=== PATIENT | male | born 1950 | race Caucasian/White ===

== ENCOUNTER 2016-03-27 07:37 | Inpatient (IN) | payer MEDICARE, OTHER ==
[~2016-03-27] VITALS: Ht 165.1 cm; Wt 69.2 kg
[~2016-03-27 07:37] MED LIST: BENA40TA5 PO; CPR500T PO; DILT180C9 PO; GLIM1TAB PO; HCT25T PO; ISOS30TA41 PO; LSNP10T PO; METF500T4 PO; METR500T PO; ONDA4TAB8 PO; PANT40TA3 PO; ROSU20TA PO; TRM50T PO
[2016-03-27] MEDS ORDERED: PIOG30TA2 PO (07:58)
[2016-03-27] MEDS ORDERED: GLIM1TAB PO (07:58)
[2016-03-27] MEDS ORDERED: NF-LISIN40 PO (07:58)
[2016-03-27] MEDS ORDERED: DILT180C54 PO (07:58)
[2016-03-27] MEDS ORDERED: NTR.4SL SL (07:58)
[2016-03-27] MEDS ORDERED: SODIUM CHLORIDE 250 ML IV PRN (08:10)
[2016-03-27] MEDS ORDERED: SODIUM CHLORIDE FLUSH 3 ML SYR IV PRN (08:10)
[2016-03-27] MEDS ORDERED: ONDANSETRON 2 MG/ML (Z0FRAN) 2 ML VIAL IV ONE (08:10)
[2016-03-27] MEDS ORDERED: SODIUM CHLORIDE FLUSH 10 ML SYR IV PRN ×2 (08:10)
[2016-03-27 08:57] LABS: ALBUMIN 4.6 g/dL (3.4-5.0); ALKALINE PHOSPHATASE 91 U/L (38-126); AMYLASE* 113 U/L (25-115); ANION GAP 17.5 MEQ/L (3-15); BUN/CREATININE RATIO 24 (10-20); CALCULATED IONIZED CALCIUM 4.1 mg/dL (3.8-4.6); CREATINE KINASE 98 U/L (55-170); LIPASE* 125 U/L (23-300); TOTAL PROTEIN 8.1 g/dL (6.4-8.5)
[2016-03-27 09:02] LABS: MEAN CORPUSCULAR HEMOGLOBIN 29.1 PG (26.0-34.0); MEAN CORPUSCULAR HGB CONC 34.2 g/dL (31.0-37.0); MEAN CORPUSCULAR VOLUME 85 FL (80-100); MEAN PLATELET VOLUME 10.2 FL (6.0-9.5); PLATELET COUNT 251 10^3uL (150-450); WHITE BLOOD COUNT 22.47 10^3uL (4.0-11.0)
--- NOTE | 2016-03-27 09:10 | Diagnostic Imaging Report ---
Indication: Nausea and vomiting with diarrhea for one month, overall weakness. Discussion: Supine and upright views of the abdomen and chest were obtained, comparison with plain films and CT from 06/08/2015. No focal consolidation, pleural fluid, pneumothorax. Median sternotomy is stable. Stable normal heart size. Postoperative changes are again noted within the epigastric region and pelvis. Amorphous calcification within the left midabdomen, which is located within the mesentery on CT, is stable and likely benign. Normal bowel gas pattern. No evidence of obstruction, pneumatosis, pneumoperitoneum. Degenerative changes within the lumbar spine and bilateral hips are stable. Incidental note of left L5 pseudoarthrosis which can be associated with pain. Impression: 1. Unremarkable bowel gas pattern. Stable chronic findings as discussed above. Dictated by: Dictated on workstation # [id number]
[2016-03-27 09:30] LABS: BAND NEUTROPHILS % 6 % (0-6); EOSINOPHILS % 0 % (0-4); LYMPHOCYTES # 0.5 #; MONOCYTES # 0.9 #; MONOCYTES % 4 % (3-11); RBC MORPH NORMAL (NORMAL); SEGMENTED NEUTROPHILS % 88 % (51-67); TOTAL CELLS COUNTED 100
--- NOTE | 2016-03-27 10:40 | NUR ---
remains at bedside. cl
--- NOTE | 2016-03-27 11:02 | NUR ---
PT NOTIFIED THAT PREVIOUS SPUTUM SPECIMAN PRESENTED HAD TOO MANY EPITHELIAL CELLS. A 2ND SPUTUM SPECIMEN SET UP & PT INSTRUCTED IN ATTEMPTING TO GET LESS SPUTUM & MUCH OF THE THICK MUCUS POSSIBLE. CL
--- NOTE | 2016-03-27 11:22 | Diagnostic Imaging Report ---
PROCEDURE: CT abdomen and pelvis without contrast. TECHNIQUE: Multiple contiguous axial images were obtained through the abdomen and pelvis without the use of intravenous contrast. DATE: March 27, 2016. COMPARISON: KUB March 27, 2016. CT abdomen and pelvis June 08, 2015. INDICATION: 65-year-old male, vomiting, diarrhea. Left lower quadrant pain. FINDINGS: There are limitations for evaluation of the abdominal organ parenchyma and vasculature relating to lack of intravenous contrast. There are subjacent somewhat branching areas of ill-defined patchy groundglass attenuation and mild nodularity in the right middle lobe and right lower lobe. This is also seen on the comparison exam with a very similar appearance to the prior exam. Previously noted tree-in-bud nodularity in the left lower lobe appears to have resolved. The heart is not enlarged. There is no pericardial effusion. There is a small hiatal hernia. The liver is normal in size and contour. The gallbladder is unremarkable. There is no identified intrahepatic or extrahepatic bile duct dilation. The pancreatic parenchyma is unremarkable. There is an accessory splenule on axial image 19. The spleen is not enlarged. There is nonspecific mild thickening of the adrenal glands. Unremarkable appearance of the renal parenchyma. The urinary collecting systems are not distended. There is no identified renal or ureteral stone. The urinary bladder is unremarkable in appearance. The prostate gland is not seen with surgical clips in the pelvis likely relating to prior prostatectomy. There is diverticulosis without evidence of acute diverticulitis. There is a broad-based fat-containing intra-abdominal wall hernia. The intestinal tract is not distended. The appendix is well seen on axial image 51 and adjacent sequential images and is normal. There is no free intraperitoneal air. There is no drainable fluid collection. There is no free pelvic fluid. There is a fat-containing mass-like area in the left omentum with a thin peripheral wall which is unchanged since comparison exam. 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 There are atherosclerotic calcifications. There is no identified abnormally enlarged lymph node in the abdomen or pelvis which meets CT size criteria for adenopathy. There is chondrocalcinosis. There are severe degenerative changes of the bilateral hips. There is a sclerotic lesion in the right iliac bone on axial image 58, which measures 8 mm in size. This is unchanged since June 08, 2015. This is not specific. There are multilevel degenerative changes of the spine. There are median sternotomy wires. IMPRESSION: CT ABDOMEN AND PELVIS. 1. Tree-in-bud nodularity and patchy areas of groundglass attenuation in the right middle lobe which are present previously in May 2015 and do appear similar. This likely relates to an infectious bronchiolitis. 2. No identified acute abnormality within the abdomen or pelvis. Dictated by: Dictated on workstation # [id number]
[2016-03-27] MEDS ORDERED: BENZONATATE 100 MG (TESSALON) CAPSULE PO ONE (11:55)
--- NOTE | 2016-03-27 12:00 | NUR ---
PT UNABLE TO GIVE STOOL SPECIMEN. DR CAMERON NOTIFIED. CL
[2016-03-27 12:05] LABS: BILIRUBIN,URINE Negative (Negative); CLARITY,URINE Clear; COLOR,URINE Yellow; GLUCOSE, URINE (UA) Negative (Negative); LEUKOCYTE ESTERASE ,URINE Negative (Negative); UROBILINOGEN,URINE 0.2 mg/dL (0.2-1.0)
[2016-03-27 12:26] LABS: RBC,URINE 0-2 /HPF; URINE CENTRIFUGED VOLUME 12 mL
--- NOTE | 2016-03-27 12:48 | History and Physical (E) ---
History & Physical PCP: Phillip Guerrero Cardiology: Dr Mikki De Urologist: Dr. Collins GI- Dr. Olivares Ortho: Dr Sorenson and Dr. See CC: Nausea and vomiting-Abdominal pain HPI: Mr. Braga is a 65 year old male who comes to the ED for nausea, vomiting, diarrhea with abdominal pain that started at 4am on 03.27.16. He is reporting dizziness when he stands. He lives at home with two small children, one of which has recently been admitted here at the hospital for pneumonia. He also endorses a persistent cough that has been present for the last month. He's not been eating or drinking much due to nausea and vomiting. He denies any symptoms prior to this morning. He was recently treated for diverticulitis 2 weeks ago with Flagyl and Cipro. He presented to the ED and was evaluated. He was found to have elevated WBC's. He's tachycardiac. Respiratory viral panel positive for Coronavirus and Enterovirus. CT of abdomen and pelvis do not show any abdominal abnormalities. Admission was requested due to abdominal pain. Upon arrival to the floor, the patient has a very persistent cough which is his most notable complaint. He does appear ill. His is at bedside. Discussed findings and care plan. PMH: DM-2 (glimepiride, pioglitazone and metformin) CAD (prn ntg) HTN (diltiazem and lisinopril) Prostate Cancer GERD (pantoprazole) IBS Barretts Esophagus HLD (atorvastatin) Diverticulosis Arthritis PSH: CABG- Dr. Washburn EGD Colonoscopy Hernia surgery x 3 Davis Fundoplication-Dr Olivares Bilateral Total Knee surgery Prostate surgery Angiograms x 18 ALLERGIES: Sulfa E-mycin Ether Iodine Iv contrast Latex Morphine Please see list at end of report. HOME MEDICATIONS: Atorvastatin 40 MG PO HS Diltiazem 180 MG PO HS Glimepiride 1 MG PO DAILY Lisinopril 10 MG PO DAILY Metformin 1,000 MG PO BID WITH MEALS Pantoprazole 40 MG PO DAILY Pioglitazone 30 MG PO HS Nitroglycerin 0.4 MG SL UD PRN CHEST PAIN Ondansetron 4 MG PO Q8H PRN NAUSEA/VOMITING Please see list at end of report. FH: Parents--Mother from cardiac and colon cancer. Father had cardiac issues. Siblings--Brother with DM and CAD. Children--Healthy. SH: , lives at home with , has 1 daughter, 2 grandchildren which they help care for at their home, no smoking or alcohol use, retired from [employer], disabled. ROS: CONSTITUTION: Denies weight loss or gain. Denies fever or chills. HEENT: No change in vision or hearing. No sores in mouth, sore throat. CV: No chest pain, palpitations. H/O CAD PULM: Endorses cough, shortness of breath, difficulty breathing. GI: Endorses upset stomach, nausea, vomiting, and diarrhea. No blood in stool. : No dysuria. No blood in urine. MS: No new muscle or joint aches and pains. NEURO: No numbness or tingling. No weakness. INTEG: No rashes, lesions, or sores. ENDO: No heat or cold intolerance. No polydipsia or polyuria. HEME/LYMPH: No easy bruising or bleeding. No swollen glands. PSYCH: No change in mood or behavior. OBJECTIVE: Vitals: Vital Signs Date Time Temp Pulse Resp B/P Pulse Ox O2 Delivery O2 Flow Rate FiO2 03/27/16 07:38 98.8 106 16 177/94 97 Room Air GEN: Awake and alert. No distress. Pale. HEENT: EOMI, PERRL, dry oral mucosa. CV: RRR LUNGS: Coarse with wheezes bilaterally. Cough. ABD: Bowel sounds present. Soft. ND. EXTR: No edema. INTEG: No rash. Pale. NEURO: No focal motor neuro deficit. LABS: CBC BMP Last 24 Hrs 03/27/16 08:27 Laboratory Results Past 24 Hrs 03/27/16 08:27: Absolute Band Neutrophils 1.3, Activated Partial Thromboplast Time 28.6, Alanine Aminotransferase (ALT/SGPT) 41, Albumin 4.6, Albumin/Globulin Ratio 1.314, Alkaline Phosphatase 91, Amylase Level 113, Anion Gap 17.5, Aspartate Amino Transf (AST/SGOT) 29, BUN/Creatinine Ratio 24, Band Neutrophils % 6, Basophils # (Auto) , Basophils # (Manual) 0.0, Basophils % (Manual) 0, Basophils (%) (Auto) , Blood Morphology Comment Normal, Blood Urea Nitrogen 27, C-Reactive Protein 1.00, Calcium Level 10.0, Calcium/Ionized Calcium Ratio 4.1, Calculated Osmolality 280, Carbon Dioxide Level 26, Chloride Level 102, Creatine Kinase MB 0.6, Creatinine 1.11, Differential Total Cells Counted 100, Eosinophils # 0.0, Eosinophils # (Auto) , Eosinophils % (Manual) 0, Eosinophils (%) (Auto) , Estimat Glomerular Filtration Rate 80.4, Estimated GFR (Non- 66.5, Glucose Level 168, Hematocrit 40.60, Hemoglobin 13.9, Lactic Acid Level 2.3, Lipase 125, Lymphocytes # 0.5, Lymphocytes # (Auto) , Lymphocytes % (Manual) 2, Lymphocytes (%) (Auto) , Mean Corpuscular Hemoglobin 29.1, Mean Corpuscular Hemoglobin Concent 34.2, Mean Corpuscular Volume 85, Mean Platelet Volume 10.2, Monocytes # 0.9, Monocytes # (Auto) , Monocytes % ( Manual) 4, Monocytes (%) (Auto) , Neutrophils # 19.8, Neutrophils # (Auto) , Neutrophils (%) (Auto) , Platelet Count 251, Potassium Level 4.6, Prothromb Time International Ratio 1.1, Prothrombin Time 11.8, Red Blood Count 4.77, Red Cell Distribution Width 14.1, Segmented Neutrophils % 88, Sodium Level 140, Total Bilirubin 0.8, Total Creatine Kinase 98, Total Protein 8.1, Troponin I < 0.012, White Blood Count 22.47 03/27/16 08:35: Adenovirus (PCR) Negative, Bordetella parapertussis DNA (PCR) Negative, Chlamydophila pneumoniae (PCR) Negative, Coronavirus Type 229E (PCR) Negative, Coronavirus Type HKU1 (PCR) Negative, Coronavirus Type NL63 (PCR) Negative, Coronavirus Type OC43 (PCR) Positive, Enterovirus/Rhinovirus (PCR) Positive, Human Metapneumovirus (PCR) Negative, Influenza Type A (H1) (PCR) Negative, Influenza Virus Type B (PCR) Negative, Mycoplasma pneumoniae (PCR) Negative, Parainfluenza Type 1 (PCR) Negative, Parainfluenza Type 2 (PCR) Negative, Parainfluenza Type 3 (PCR) Negative, Parainfluenza Type 4 (PCR) Negative, Respiratory Syncytial Virus (PCR) Negative 03/27/16 12:00: Urine Bacteria None seen, Urine Bilirubin Negative, Urine Clarity Clear, Urine Collection Type Random voided, Urine Color Yellow, Urine Glucose (UA) Negative, Urine Ketones Negative, Urine Leukocyte Esterase Negative, Urine Nitrite Negative, Urine Protein 2+, Urine RBC 0-2, Urine RBC (Auto) Negative, Urine Specific [place] 1.015, Urine Squamous Epithelial Cells 0-2, Urine Urobilinogen 0.2, Urine WBC None seen, Urine pH 6.0, Volume Urine Centrifuged 12 ml [id number] Abdominal film Impression: 1. Unremarkable bowel gas pattern. Stable chronic findings as discussed above. 03.27.16 CT abd/pelvis IMPRESSION: CT ABDOMEN AND PELVIS. 1. Diverticulosis with mild inflammatory stranding adjacent to the proximal sigmoid colon compatible with acute diverticulitis. No evidence of perforation or abscess. 2. Scattered tree-in-bud nodular opacities within the left lower lobe, right lower lobe, and right middle lobe most likely relating to an infectious bronchiolitis although of uncertain exact acuity. This is new since comparison CT chest of August 23, 2013. ASSESSMENT/PLAN: Sepsis Met with fever, tachycardia and leukocytosis. Secondary to diverticulitis. Treatment below. Acute diverticulitis Imaging noted above. Patient could be improving, as his main complaint at this time is respiratory. Will however treat as failed outpatient tx. Monitor closely. NPO, ciprofloxacin, metronidazole and IVF's. Will treat pain with hydromorphone prn. Monitor for improvement. URI Due to doe and entero viruses. Not requiring oxygen but will monitor closely. Will treat bothersome cough with benzonatate. DM-2 Holding home regimen of glimepiride, pioglitazone and metformin. Providing SSI and monitoring accu cheks. CAD Currently no symptoms. On prn ntg at home. HTN Will continue home diltiazem and lisinopril despite sepsis criteria due to elevated BP. Watch how patient tolerating orals, may need to convert to IV. Prostate Cancer Stable. GERD/Barretts Esophagus On pantoprazole at home, will change to IV while here. Creatinine normal. DLD Holding home atorvastatin until tolerating diet. FEN NS at 100/hr x 1 liter. Electrolytes normal. NPO for now. Code status Full code. DVT proph SCD's Dispo Inpatient for above issues. Monitor patient closely. Expect 3-5 day stay. Allergies/Home Medications Allergies: Coded Allergies: Sulfa (Sulfonamide Antibiotics) (Verified Allergy, Unknown, 03/27/16) erythromycin base (Verified Allergy, Unknown, 03/27/16) ether (Verified Allergy, Unknown, 03/27/16) iodine (Verified Allergy, Unknown, 03/27/16) latex (Verified Allergy, Unknown, 03/27/16) morphine (Verified Allergy, Unknown, 03/27/16) Uncoded Allergies: iv contrast (Allergy, Unknown, 03/27/16) Reported Home Medications Scheduled Atorvastatin (Lipitor) 40 MG PO HS (Reported) Diltiazem HCl (Cartia XT) 180 MG PO HS (Reported) Glimepiride (Glimepiride) 1 MG PO DAILY (Reported) Lisinopril (Lisinopril) 10 MG PO DAILY (Reported) Metformin HCl (Metformin HCl) 1,000 MG PO BID WITH MEALS (Reported) Pantoprazole Sodium (Pantoprazole Sodium) 40 MG PO DAILY (Reported) Pioglitazone HCl (Actos) 30 MG PO HS (Reported) Scheduled PRN Nitroglycerin (Nitroquick) 0.4 MG SL UD PRN PRN CHEST PAIN (Reported) Ondansetron (Zofran ODT) 4 MG PO Q8H PRN PRN NAUSEA/VOMITING (Reported) Discontinued Medications Ciprofloxacin HCl (Cipro) 500 MG PO BID Discontinued Reason: Course completed Lisinopril (Lisinopril) 40 MG PO HS (Reported) Discontinued Reason: Update list Metformin HCl (Metformin HCl) 500 MG PO BID (Reported) Discontinued Reason: Update list Metronidazole (Flagyl) 500 MG PO QID Discontinued Reason: Course completed Ondansetron (Zofran ODT) 4 MG PO Q4H PRN PRN NAUSEA/VOMITING Discontinued Reason: Update list Tramadol HCl (Tramadol HCl) 1-2 TAB PO Q6H PRN PRN PAIN Discontinued Reason: Unknown Copies to: End of Report . Stephanie Montgomery APRN Mar 27, 2016 12:48 LYNN MERRILL MD Mar 27, 2016 19:14
--- NOTE | 2016-03-27 13:05 | NUR ---
Patient arrives to room 305 via ED cart. Alert and oriented X3. Denies pain despite persistent cough. Denies dizziness when ambulating from chair to bed. See admission for full assessment.
[2016-03-27] MEDS ORDERED: ONDANSETRON 2 MG/ML (Z0FRAN) 2 ML VIAL IV PRN (13:55)
[2016-03-27] MEDS ORDERED: PANTOPRAZOLE IV 40 MG in SODIUM CHLORIDE FLUSH 10 ML IV SCH (14:00)
[2016-03-27] MEDS ORDERED: NITROGLYCERIN SUBLINGUAL 0.4 MG (NITROQUICK) TABLET SL PRN (14:00)
[2016-03-27] MEDS ORDERED: NS FLUSH 10 ML PRN IV (14:05)
[2016-03-27] MEDS ORDERED: NS FLUSH 3 ML PRN IV (14:05)
[2016-03-27] MEDS ORDERED: METF1000 PO (14:21)
[2016-03-27 14:26] VITALS: BP 138/70
[2016-03-27 14:27] VITALS: BP 138/70
[2016-03-27 16:28] VITALS: BP 150/74
[2016-03-27] MEDS: BENZONATATE 100 MG (TESSALON) CAPSULE PO PRN (16:35)
--- NOTE | 2016-03-27 16:35 | NUR ---
Dr. Hernández notified that patient has persistent cough that is inducing vomiting. Vomit is yellow and foul smelling. PRN Tessalon lupe order received and administered at this time. Will continue to monitor.
[2016-03-27] MEDS ORDERED: ONDA4TAB8 PO (16:50)
[2016-03-27] MEDS ORDERED: ATOR40TA2 PO (16:50)
--- NOTE | 2016-03-27 16:51 | NUR ---
MED REC COMPLETE--current med list obtained from external med history and retail pharmacy ([facility]
--- NOTE | 2016-03-27 17:03 | NUR ---
Patient expels 200ml of vomit at this time. PRN Zofran provided. Currently running a fever of 101.2. PRN Tylenol provided. IV leaking in right hand. Discontinued with catheter intact. 22g IV initiated on first attempt by Gayle Quick RN after unsuccessful attempt by this nurse. Will continue to monitor.
[2016-03-27] MEDS: INSULIN LISPRO 1 UNIT/0.01 ML (HUMALOG) DOSE SC SCH ×2 (17:10→20:31)
--- NOTE | 2016-03-27 18:28 | NUR ---
Dr. Hernández here to see patient. Temp currently 98.9. Continues to report cough is persistent and "awful". Will continue to monitor.
[2016-03-27] MEDS ORDERED: HYDROmorphone 1 MG/ML (DILAUDID) SYRINGE IV PRN (18:55)
[2016-03-27] MEDS: ACETAMINOPHEN 325 MG TAB (TYLENOL) PO PRN (19:03)
[2016-03-27] MEDS ORDERED: CIPROFLOXACIN 400 MG/200 ML 200 ML IV ONE (20:33)
[2016-03-27] MEDS: DILTIAZEM CD 180 MG (CARDIZEM CD) CAP PO SCH (20:38)
[2016-03-27] MEDS ORDERED: CIPROFLOXACIN IV SCH (21:00)
[2016-03-27] MEDS ORDERED: D5W IV SCH (21:00)
[2016-03-28 00:44] VITALS: BP 112/62
[2016-03-28] MEDS: BENZONATATE 100 MG (TESSALON) CAPSULE PO PRN ×3 (01:02→20:06)
[2016-03-28 05:52] LABS: MEAN CORPUSCULAR HEMOGLOBIN 30.1 PG (26.0-34.0); MEAN CORPUSCULAR HGB CONC 34.8 g/dL (31.0-37.0); MEAN CORPUSCULAR VOLUME 87 FL (80-100); PLATELET COUNT 224 10^3uL (150-450); WHITE BLOOD COUNT 26.14 10^3uL (4.0-11.0)
[2016-03-28 06:10] LABS: BAND NEUTROPHILS % 4 % (0-6); MONOCYTES # 1.6 #; MONOCYTES % 6 % (3-11)
[2016-03-28 06:11] LABS: EOSINOPHILS % 0 % (0-4); RBC MORPH NORMAL (NORMAL); SEGMENTED NEUTROPHILS % 86 % (51-67); TOTAL CELLS COUNTED 100
[2016-03-28 06:31] LABS: ALBUMIN 3.4 g/dL (3.4-5.0); ANION GAP 13.1 MEQ/L (3-15); CALCULATED IONIZED CALCIUM 4.2 mg/dL (3.8-4.6); TOTAL PROTEIN 6.4 g/dL (6.4-8.5)
--- NOTE | 2016-03-28 06:43 | NUR ---
Patient rests in bed throughout needs. Reports cough during night, states that he is starting to have some pain in his shoulder from coughing, but "it's not too bad yet." Patient has been concerned about home medications that he hasn't taken, reassured that his physician would be looking at his medications today. IV running without difficulties. No needs at this time.
[2016-03-28] MEDS ORDERED: PANTOPRAZOLE IV 40 MG in SODIUM CHLORIDE FLUSH 10 ML IV SCH (07:00)
[2016-03-28] MEDS: INSULIN LISPRO 1 UNIT/0.01 ML (HUMALOG) DOSE SC SCH ×4 (07:30→21:00)
[2016-03-28] MEDS: ACETAMINOPHEN 325 MG TAB (TYLENOL) PO PRN (07:53)
[2016-03-28 08:00] VITALS: BP 115/70
[2016-03-28] MEDS: NS FLUSH 3 ML DAILY IV SCH (09:00)
[2016-03-28] MEDS ORDERED: CIPROFLOXACIN 400 MG/200 ML 200 ML IV SCH (09:00)
--- NOTE | 2016-03-28 09:00 | NUR ---
Asking for breakfast - informed is NPO for now. Takes meds po with sips of water. Loose, harsh cough at times. Took Tylenol for chest pain when coughing. Cheerful and cooperative.
[2016-03-28] MEDS ORDERED: PROMETHAZINE 25 MG/ML (PHENERGAN) 1 ML VIAL IM PRN (10:30)
[2016-03-28] MEDS ORDERED: PROMETHAZINE HCL INJ 12.5 MG in SODIUM CHLORIDE 25 ML IV PRN (10:55)
--- NOTE | 2016-03-28 11:00 | NUR ---
Walks to shower with mask on. Incontinent of stool when coughing. No nausea when taking diet Sprite.
--- NOTE | 2016-03-28 11:03 | Progress Note (E) ---
Progress Note SUBJECTIVE No issues reported overnight. Has had cough and resultant shoulder pain but is tolerating it. WBC remains elevated at 26.14 with 86% N and 4% B. Chemistry stable. Blood culture negative. Sputum pending. Last temp elevation was 101.2 at 16:30. Was placed on cipro and metronidazole for diverticulitis but CT from this admission shows no active inflammatory changes and he had just completed treatment for diverticulitis in outpatient setting. Permitting CLD today and advancing as tolerated. OBJECTIVE Vital Signs Date Time Temp Pulse Resp B/P Pulse Ox O2 Delivery O2 Flow Rate FiO2 03/28/16 08:00 98.7 70 20 115/70 94 Room air I & O 03/27/16 03/28/16 Cumulative From/Thru 19:00 07:00 03/27/16 07:38 - 03/28/16 06:06 Intake Total 0 ml 250 ml 250 ml Output Total 0 ml 1325 ml 1325 ml Balance 0 ml -1075 ml -1075 ml GEN: Awake, alert, interactive. NAD at present. HEENT: EOMI, clear sclerae, mildly dry oral mucosa. CV: Regular without murmur. PULM: Expiratory wheeze in right base with cough exacerbated by deep breathing. Otherwise CTA. ABD: Soft, non-tender, hyperactive bowel sounds. EXTR: No C/C/E. Normal peripheral pulses. INTEG: No rash. NEURO: No focal motor neuro deficit. Lab-Past 14 Days, 35 Results 03/27/16 08:27: Absolute Band Neutrophils 1.3, Activated Partial Thromboplast Time 28.6, Alanine Aminotransferase (ALT/SGPT) 41, Albumin 4.6, Albumin/Globulin Ratio 1.314, Alkaline Phosphatase 91, Amylase Level 113, Anion Gap 17.5H, Aspartate Amino Transf (AST/SGOT) 29, BUN/Creatinine Ratio 24H, Band Neutrophils % 6, Basophils # (Auto) , Basophils # (Manual) 0.0, Basophils % (Manual) 0, Basophils (%) (Auto) , Blood Morphology Comment Normal, Blood Urea Nitrogen 27H , C-Reactive Protein 1.00H, Calcium Level 10.0, Calcium/Ionized Calcium Ratio 4.1, Calculated Osmolality 280, Carbon Dioxide Level 26, Chloride Level 102, Creatine Kinase MB 0.6, Creatinine 1.11, Differential Total Cells Counted 100, Eosinophils # 0.0, Eosinophils # (Auto) , Eosinophils % (Manual) 0, Eosinophils (%) (Auto) , Estimat Glomerular Filtration Rate 80.4, Estimated GFR (Non- 66.5, Glucose Level 168H, Hematocrit 40.60, Hemoglobin 13.9, Lactic Acid Level 2.3H, Lipase 125, Lymphocytes # 0.5, Lymphocytes # (Auto) , Lymphocytes % (Manual) 2L, Lymphocytes (%) (Auto) , Mean Corpuscular Hemoglobin 29.1, Mean Corpuscular Hemoglobin Concent 34.2, Mean Corpuscular Volume 85, Mean Platelet Volume 10.2H, Monocytes # 0.9, Monocytes # (Auto) , Monocytes % ( Manual) 4, Monocytes (%) (Auto) , Neutrophils # 19.8, Neutrophils # (Auto) , Neutrophils (%) (Auto) , Platelet Count 251, Potassium Level 4.6, Prothromb Time International Ratio 1.1, Prothrombin Time 11.8, Red Blood Count 4.77, Red Cell Distribution Width 14.1, Segmented Neutrophils % 88H, Sodium Level 140, Total Bilirubin 0.8, Total Creatine Kinase 98, Total Protein 8.1, Troponin I < 0.012, White Blood Count 22.47H 03/27/16 08:35: Adenovirus (PCR) Negative, Bordetella parapertussis DNA (PCR) Negative, Chlamydophila pneumoniae (PCR) Negative, Coronavirus Type 229E (PCR) Negative, Coronavirus Type HKU1 (PCR) Negative, Coronavirus Type NL63 (PCR) Negative, Coronavirus Type OC43 (PCR) Positive*A, Enterovirus/Rhinovirus (PCR) Positive*A , Human Metapneumovirus (PCR) Negative, Influenza Type A (H1) (PCR) Negative, Influenza Virus Type B (PCR) Negative, Mycoplasma pneumoniae (PCR) Negative, Parainfluenza Type 1 (PCR) Negative, Parainfluenza Type 2 (PCR) Negative, Parainfluenza Type 3 (PCR) Negative, Parainfluenza Type 4 (PCR) Negative, Respiratory Syncytial Virus (PCR) Negative 03/27/16 12:00: Urine Bacteria None seen, Urine Bilirubin Negative, Urine Clarity Clear, Urine Collection Type Random voided, Urine Color Yellow, Urine Glucose (UA) Negative, Urine Ketones Negative, Urine Leukocyte Esterase Negative, Urine Nitrite Negative, Urine Protein 2+H, Urine RBC 0-2, Urine RBC (Auto) Negative, Urine Specific [place] 1.015, Urine Squamous Epithelial Cells 0-2, Urine Urobilinogen 0.2, Urine WBC None seen, Urine pH 6.0, Volume Urine Centrifuged 12 ml 03/28/16 05:32: Absolute Band Neutrophils 1.0, Alanine Aminotransferase (ALT/SGPT) 39, Albumin 3.4#, Albumin/Globulin Ratio 1.133, Alkaline Phosphatase 62, Anion Gap 13.1, Aspartate Amino Transf (AST/SGOT) 34, BUN/Creatinine Ratio 17, Band Neutrophils % 4, Basophils # (Auto) , Basophils # (Manual) 0.0, Basophils % (Manual) 0, Basophils (%) (Auto) , Blood Morphology Comment Normal, Blood Urea Nitrogen 19H , Calcium Level 8.9, Calcium/Ionized Calcium Ratio 4.2, Calculated Osmolality 272L, Carbon Dioxide Level 27, Chloride Level 104, Creatinine 1.14, Differential Total Cells Counted 100, Eosinophils # 0.0, Eosinophils # (Auto) , Eosinophils % (Manual) 0, Eosinophils (%) (Auto) , Estimat Glomerular Filtration Rate 78.0, Estimated GFR (Non- 64.5, Glucose Level 130#H, Hematocrit 33.90L, Hemoglobin 11.8L, Lymphocytes # 1.0, Lymphocytes # ( Auto) , Lymphocytes % (Manual) 4L, Lymphocytes (%) (Auto) , Mean Corpuscular Hemoglobin 30.1, Mean Corpuscular Hemoglobin Concent 34.8, Mean Corpuscular Volume 87, Mean Platelet Volume 10.0H, Monocytes # 1.6, Monocytes # (Auto) , Monocytes % (Manual) 6, Monocytes (%) (Auto) , Neutrophils # 22.5, Neutrophils # (Auto) , Neutrophils (%) (Auto) , Platelet Count 224, Potassium Level 4.9, Red Blood Count 3.92L, Red Cell Distribution Width 14.3, Segmented Neutrophils % 86H, Sodium Level 138, Total Bilirubin 1.1H, Total Protein 6.4, White Blood Count 26.14H MICRO 03/27 Blood culture Negative to date 03/27 Resp PCR Panel POSITIVE for Coronavirus (OC43) and Enter/Rhinovirus. IMAGING 03/27/16 CT ABDOMEN/PELVIS WO PROCEDURE: CT abdomen and pelvis without contrast. TECHNIQUE: Multiple contiguous axial images were obtained through the abdomen and pelvis without the use of intravenous contrast. DATE: March 27, 2016. COMPARISON: KUB March 27, 2016. CT abdomen and pelvis June 08, 2015. INDICATION: 65-year-old male, vomiting, diarrhea. Left lower quadrant pain. FINDINGS: There are limitations for evaluation of the abdominal organ parenchyma and vasculature relating to lack of intravenous contrast. There are subjacent somewhat branching areas of ill-defined patchy groundglass attenuation and mild nodularity in the right middle lobe and right lower lobe. This is also seen on the comparison exam with a very similar appearance to the prior exam. Previously noted tree-in-bud nodularity in the left lower lobe appears to have resolved. The heart is not enlarged. There is no pericardial effusion. There is a small hiatal hernia. The liver is normal in size and contour. The gallbladder is unremarkable. There is no identified intrahepatic or extrahepatic bile duct dilation. The pancreatic parenchyma is unremarkable. There is an accessory splenule on axial image 19. The spleen is not enlarged. There is nonspecific mild thickening of the adrenal glands. Unremarkable appearance of the renal parenchyma. The urinary collecting systems are not distended. There is no identified renal or ureteral stone. The urinary bladder is unremarkable in appearance. The prostate gland is not seen with surgical clips in the pelvis likely relating to prior prostatectomy. There is diverticulosis without evidence of acute diverticulitis. There is a broad-based fat-containing intra-abdominal wall hernia. The intestinal tract is not distended. The appendix is well seen on axial image 51 and adjacent sequential images and is normal. There is no free intraperitoneal air. There is no drainable fluid collection. There is no free pelvic fluid. There is a fat- containing mass-like area in the left omentum with a thin peripheral wall which is unchanged since comparison exam. 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 There are atherosclerotic calcifications. There is no identified abnormally enlarged lymph node in the abdomen or pelvis which meets CT size criteria for adenopathy. There is chondrocalcinosis. There are severe degenerative changes of the bilateral hips. There is a sclerotic lesion in the right iliac bone on axial image 58, which measures 8 mm in size. This is unchanged since June 08, 2015. This is not specific. There are multilevel degenerative changes of the spine. There are median sternotomy wires. IMPRESSION: CT ABDOMEN AND PELVIS. 1. Tree-in-bud nodularity and patchy areas of groundglass attenuation in the right middle lobe which are present previously in May 2015 and do appear similar. This likely relates to an infectious bronchiolitis. 2. No identified acute abnormality within the abdomen or pelvis. 03/27/16 ACUTE ABD SERIES Indication: Nausea and vomiting with diarrhea for one month, overall weakness. Discussion: Supine and upright views of the abdomen and chest were obtained, comparison with plain films and CT from 06/08/2015. No focal consolidation, pleural fluid, pneumothorax. Median sternotomy is stable. Stable normal heart size. Postoperative changes are again noted within the epigastric region and pelvis. Amorphous calcification within the left midabdomen , which is located within the mesentery on CT, is stable and likely benign. Normal bowel gas pattern. No evidence of obstruction, pneumatosis, pneumoperitoneum. Degenerative changes within the lumbar spine and bilateral hips are stable. Incidental note of left L5 pseudoarthrosis which can be associated with pain. Impression: 1. Unremarkable bowel gas pattern. Stable chronic findings as discussed above. ASSESSMENT Paul Braga is a 65 year old male admitted from ED 03/27 with SIRS/Sepsis initially attributed to diverticulitis but CT showed no significant inflammatory change in the abdomen and CRP was only mildly elevated at 1.00. He did, however, have leukocytosis and fever and he was positive for coronavirus and entero/rhinovirus on respiratory PCR swab. PLAN * SIRS/Sepsis: Attributed to diverticulitis initially but CT abdomen reassuring. Could be due to URI (coronavirus, entero/rhinovirus) and he may also have gastroenteritis. * Diverticulitis: Resolved on the basis of CT findings. Stopped cipro and metronidazole 03/28. * URI due to Coronavirus and Entero/rhinovirus: Supportive care. * Gastroenteritis: Clinical diagnosis, on the basis of diarrhea and nausea/ vomiting at home. Supportive care. Advance diet as tolerated. * Fever: Acetaminophen * Cough: Benzonatate. * Nausea/Vomiting: Resolving. Ondansetron, promethazine. * Abdominal Pain: Hydromorphone. * F/E/N: CLD. Advance as tolerated. Stop IVF 03/28. Peripheral IV. * Prophylaxis: Enoxaparin * Code Status: Full * Dispo: Inpatient. Possible D/C 03/29 if labs stable and fever resolving. CHRONIC ISSUES * HDL: Atorvastatin * Diabetes Mellitus Type II: Hold metformin, pioglitazone, and glimepiride while NPO. Sliding scale. * GERD: Pantoprazole * HTN: Diltiazem, lisinopril. * CAD: Not on aspirin at home. Observe. YOHANNES MATTHEWS MD Mar 28, 2016 10:50
[2016-03-28] MEDS: lisINopril 10 MG (PRINIVIL) TABLET PO SCH (11:12)
[2016-03-28] MEDS ORDERED: ASPI-586 PO (11:12)
[2016-03-28] MEDS: ENOXAPARIN 40 MG/0.4 ML (LOVENOX) SYR SC SCH (11:12)
[2016-03-28] MEDS ORDERED: ALBUTEROL/IPRATROPIUM 3MG-0.5MG/3ML (DUONEB) NEB VIAL INH PRN (11:15)
[2016-03-28] MEDS ORDERED: ASPIRIN 81 MG CHEW (CHILDREN'S ASA) PO SCH (11:15)
[2016-03-28] MEDS ORDERED: ASPI325T4 PO (11:56)
[2016-03-28 15:54] VITALS: BP 132/70
--- NOTE | 2016-03-28 15:55 | NUR ---
Pt is on room air SPO2 94%, appears to be comfortable at this time.
--- NOTE | 2016-03-28 18:20 | NUR ---
Eating soft supper. Has harsh cough occasionally. Up ad denisa in room. Alert and oriented. Skin w/d. Cooperative and pleasant. Incontinent of stool x 2 this shift.
[2016-03-28] MEDS: ATORVASTATIN 40 MG (LIPITOR) TABLET PO SCH (20:06)
[2016-03-28] MEDS: DILTIAZEM CD 180 MG (CARDIZEM CD) CAP PO SCH (20:06)
[2016-03-29] VITALS: BP 138/80
[2016-03-29] MEDS: ACETAMINOPHEN 325 MG TAB (TYLENOL) PO PRN ×3 (00:37→23:30)
[2016-03-29] MEDS: PANTOPRAZOLE 40 MG (PROTONIX) TAB PO SCH (06:24)
[2016-03-29] MEDS: BENZONATATE 100 MG (TESSALON) CAPSULE PO PRN ×3 (06:25→23:29)
[2016-03-29 06:31] LABS: BASOPHILS % (AUTO) 0 % (0-2); EOSINOPHILS # (AUTO) 0.1 10^3uL; EOSINOPHILS % (AUTO) 1 % (0-4); LYMPHOCYTES # (AUTO) 1.4 X10^3; MEAN CORPUSCULAR HEMOGLOBIN 29.7 PG (26.0-34.0); MEAN CORPUSCULAR HGB CONC 34.6 g/dL (31.0-37.0); MEAN CORPUSCULAR VOLUME 86 FL (80-100); MEAN PLATELET VOLUME 10.8 FL (6.0-9.5); MONOCYTES % (AUTO) 7 % (3-11); NEUTROPHILS # (AUTO) 11.7 X10^3; NEUTROPHILS % (AUTO) 82 % (51-67); PLATELET COUNT 223 10^3uL (150-450)
--- NOTE | 2016-03-29 06:41 | NUR ---
Patient resting in bed throughout night without needs. Has been coughing since waking this AM, Tessalon Perles given. No needs at this time.
[2016-03-29 07:02] LABS: ALBUMIN 3.2 g/dL (3.4-5.0); ANION GAP 12.5 MEQ/L (3-15); PHOSPHORUS 2.5 mg/dL (2.4-4.9)
[2016-03-29] MEDS: INSULIN LISPRO 1 UNIT/0.01 ML (HUMALOG) DOSE SC SCH ×4 (07:30→21:00)
--- NOTE | 2016-03-29 08:04 | Progress Note (E) ---
Progress Note SUBJECTIVE Overnight, no significant issues reported. This AM, awake, alert. Complains of still having cough that kept him up at night. Having some blood-tinge to cough, he says. WBC improved but noted rise in CRP. Afebrile. Blood culture negative. Sputum not cultured due to too much saliva. Checking CXR today to assess for presence of pneumonia. Discussed that entero/rhinovirus + coronavirus is sufficient to account for his current illness but there is some value to re- checking CXR to ensure no pneumonia has developed. OBJECTIVE Vital Signs Date Time Temp Pulse Resp B/P Pulse Ox O2 Delivery O2 Flow Rate FiO2 03/29/16 00:00 98.9 84 22 138/80 96 Room air I & O 03/28/16 03/29/16 Cumulative From/Thru 18:59 06:59 03/27/16 07:38 - 03/29/16 06:06 Intake Total 1024 ml 800 ml 2074 ml Output Total 600 ml 1950 ml 3875 ml Balance 424 ml -1150 ml -1801 ml GEN: Awake, alert, interactive. NAD at present. HEENT: EOMI, clear sclerae, mildly dry oral mucosa. CV: Regular without murmur. PULM: Expiratory wheeze in right base with cough but breath sounds otherwise clear. No rhonchi or rales. ABD: Soft, non-tender, hyperactive bowel sounds. EXTR: No C/C/E. Normal peripheral pulses. INTEG: No rash. NEURO: No focal motor neuro deficit. Lab-Past 14 Days, 35 Results 03/27/16 08:27: Absolute Band Neutrophils 1.3, Activated Partial Thromboplast Time 28.6, Alanine Aminotransferase (ALT/SGPT) 41, Albumin 4.6, Albumin/Globulin Ratio 1.314, Alkaline Phosphatase 91, Amylase Level 113, Anion Gap 17.5H, Aspartate Amino Transf (AST/SGOT) 29, BUN/Creatinine Ratio 24H, Band Neutrophils % 6, Basophils # (Auto) , Basophils # (Manual) 0.0, Basophils % (Manual) 0, Basophils (%) (Auto) , Blood Morphology Comment Normal, Blood Urea Nitrogen 27H , C-Reactive Protein 1.00H, Calcium Level 10.0, Calcium/Ionized Calcium Ratio 4.1, Calculated Osmolality 280, Carbon Dioxide Level 26, Chloride Level 102, Creatine Kinase MB 0.6, Creatinine 1.11, Differential Total Cells Counted 100, Eosinophils # 0.0, Eosinophils # (Auto) , Eosinophils % (Manual) 0, Eosinophils (%) (Auto) , Estimat Glomerular Filtration Rate 80.4, Estimated GFR (Non- 66.5, Glucose Level 168H, Hematocrit 40.60, Hemoglobin 13.9, Lactic Acid Level 2.3H, Lipase 125, Lymphocytes # 0.5, Lymphocytes # (Auto) , Lymphocytes % (Manual) 2L, Lymphocytes (%) (Auto) , Mean Corpuscular Hemoglobin 29.1, Mean Corpuscular Hemoglobin Concent 34.2, Mean Corpuscular Volume 85, Mean Platelet Volume 10.2H, Monocytes # 0.9, Monocytes # (Auto) , Monocytes % ( Manual) 4, Monocytes (%) (Auto) , Neutrophils # 19.8, Neutrophils # (Auto) , Neutrophils (%) (Auto) , Platelet Count 251, Potassium Level 4.6, Prothromb Time International Ratio 1.1, Prothrombin Time 11.8, Red Blood Count 4.77, Red Cell Distribution Width 14.1, Segmented Neutrophils % 88H, Sodium Level 140, Total Bilirubin 0.8, Total Creatine Kinase 98, Total Protein 8.1, Troponin I < 0.012, White Blood Count 22.47H 03/27/16 08:35: Adenovirus (PCR) Negative, Bordetella parapertussis DNA (PCR) Negative, Chlamydophila pneumoniae (PCR) Negative, Coronavirus Type 229E (PCR) Negative, Coronavirus Type HKU1 (PCR) Negative, Coronavirus Type NL63 (PCR) Negative, Coronavirus Type OC43 (PCR) Positive*A, Enterovirus/Rhinovirus (PCR) Positive*A , Human Metapneumovirus (PCR) Negative, Influenza Type A (H1) (PCR) Negative, Influenza Virus Type B (PCR) Negative, Mycoplasma pneumoniae (PCR) Negative, Parainfluenza Type 1 (PCR) Negative, Parainfluenza Type 2 (PCR) Negative, Parainfluenza Type 3 (PCR) Negative, Parainfluenza Type 4 (PCR) Negative, Respiratory Syncytial Virus (PCR) Negative 03/27/16 12:00: Urine Bacteria None seen, Urine Bilirubin Negative, Urine Clarity Clear, Urine Collection Type Random voided, Urine Color Yellow, Urine Glucose (UA) Negative, Urine Ketones Negative, Urine Leukocyte Esterase Negative, Urine Nitrite Negative, Urine Protein 2+H, Urine RBC 0-2, Urine RBC (Auto) Negative, Urine Specific [place] 1.015, Urine Squamous Epithelial Cells 0-2, Urine Urobilinogen 0.2, Urine WBC None seen, Urine pH 6.0, Volume Urine Centrifuged 12 ml 03/28/16 05:32: Absolute Band Neutrophils 1.0, Alanine Aminotransferase (ALT/SGPT) 39, Albumin 3.4#, Albumin/Globulin Ratio 1.133, Alkaline Phosphatase 62, Anion Gap 13.1, Aspartate Amino Transf (AST/SGOT) 34, BUN/Creatinine Ratio 17, Band Neutrophils % 4, Basophils # (Auto) , Basophils # (Manual) 0.0, Basophils % (Manual) 0, Basophils (%) (Auto) , Blood Morphology Comment Normal, Blood Urea Nitrogen 19H , Calcium Level 8.9, Calcium/Ionized Calcium Ratio 4.2, Calculated Osmolality 272L, Carbon Dioxide Level 27, Chloride Level 104, Creatinine 1.14, Differential Total Cells Counted 100, Eosinophils # 0.0, Eosinophils # (Auto) , Eosinophils % (Manual) 0, Eosinophils (%) (Auto) , Estimat Glomerular Filtration Rate 78.0, Estimated GFR (Non- 64.5, Glucose Level 130#H, Hematocrit 33.90L, Hemoglobin 11.8L, Lymphocytes # 1.0, Lymphocytes # ( Auto) , Lymphocytes % (Manual) 4L, Lymphocytes (%) (Auto) , Mean Corpuscular Hemoglobin 30.1, Mean Corpuscular Hemoglobin Concent 34.8, Mean Corpuscular Volume 87, Mean Platelet Volume 10.0H, Monocytes # 1.6, Monocytes # (Auto) , Monocytes % (Manual) 6, Monocytes (%) (Auto) , Neutrophils # 22.5, Neutrophils # (Auto) , Neutrophils (%) (Auto) , Platelet Count 224, Potassium Level 4.9, Red Blood Count 3.92L, Red Cell Distribution Width 14.3, Segmented Neutrophils % 86H, Sodium Level 138, Total Bilirubin 1.1H, Total Protein 6.4, White Blood Count 26.14H 03/29/16 05:25: Albumin 3.2L, Anion Gap 12.5, Basophils # (Auto) 0.0, Basophils (%) (Auto) 0, Blood Urea Nitrogen 16, C-Reactive Protein 22.60H, Calcium Level 9.1, Carbon Dioxide Level 25, Chloride Level 105, Creatinine 0.98, Eosinophils # (Auto) 0.1 , Eosinophils (%) (Auto) 1, Estimat Glomerular Filtration Rate 92.9, Estimated GFR (Non- 76.8, Glucose Level 105, Hematocrit 34.10L, Hemoglobin 11.8L, Lymphocytes # (Auto) 1.4, Lymphocytes (%) (Auto) 10L, Mean Corpuscular Hemoglobin 29.7, Mean Corpuscular Hemoglobin Concent 34.6, Mean Corpuscular Volume 86, Mean Platelet Volume 10.8H, Monocytes # (Auto) 1.0, Monocytes (%) (Auto) 7, Neutrophils # (Auto) 11.7, Neutrophils (%) (Auto) 82H, Phosphorus Level 2.5, Platelet Count 223, Potassium Level 4.1, Red Blood Count 3.97L, Red Cell Distribution Width 14.0, Sodium Level 139, White Blood Count 14.20H MICRO 03/27 Blood culture Negative to date 03/27 Resp PCR Panel POSITIVE for Coronavirus (OC43) and Enter/Rhinovirus. IMAGING 03/27/16 CT ABDOMEN/PELVIS WO PROCEDURE: CT abdomen and pelvis without contrast. TECHNIQUE: Multiple contiguous axial images were obtained through the abdomen and pelvis without the use of intravenous contrast. DATE: March 27, 2016. COMPARISON: KUB March 27, 2016. CT abdomen and pelvis June 08, 2015. INDICATION: 65-year-old male, vomiting, diarrhea. Left lower quadrant pain. FINDINGS: There are limitations for evaluation of the abdominal organ parenchyma and vasculature relating to lack of intravenous contrast. There are subjacent somewhat branching areas of ill-defined patchy groundglass attenuation and mild nodularity in the right middle lobe and right lower lobe. This is also seen on the comparison exam with a very similar appearance to the prior exam. Previously noted tree-in-bud nodularity in the left lower lobe appears to have resolved. The heart is not enlarged. There is no pericardial effusion. There is a small hiatal hernia. The liver is normal in size and contour. The gallbladder is unremarkable. There is no identified intrahepatic or extrahepatic bile duct dilation. The pancreatic parenchyma is unremarkable. There is an accessory splenule on axial image 19. The spleen is not enlarged. There is nonspecific mild thickening of the adrenal glands. Unremarkable appearance of the renal parenchyma. The urinary collecting systems are not distended. There is no identified renal or ureteral stone. The urinary bladder is unremarkable in appearance. The prostate gland is not seen with surgical clips in the pelvis likely relating to prior prostatectomy. There is diverticulosis without evidence of acute diverticulitis. There is a broad-based fat-containing intra-abdominal wall hernia. The intestinal tract is not distended. The appendix is well seen on axial image 51 and adjacent sequential images and is normal. There is no free intraperitoneal air. There is no drainable fluid collection. There is no free pelvic fluid. There is a fat- containing mass-like area in the left omentum with a thin peripheral wall which is unchanged since comparison exam. 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 There are atherosclerotic calcifications. There is no identified abnormally enlarged lymph node in the abdomen or pelvis which meets CT size criteria for adenopathy. There is chondrocalcinosis. There are severe degenerative changes of the bilateral hips. There is a sclerotic lesion in the right iliac bone on axial image 58, which measures 8 mm in size. This is unchanged since June 08, 2015. This is not specific. There are multilevel degenerative changes of the spine. There are median sternotomy wires. IMPRESSION: CT ABDOMEN AND PELVIS. 1. Tree-in-bud nodularity and patchy areas of groundglass attenuation in the right middle lobe which are present previously in May 2015 and do appear similar. This likely relates to an infectious bronchiolitis. 2. No identified acute abnormality within the abdomen or pelvis. 03/27/16 ACUTE ABD SERIES Indication: Nausea and vomiting with diarrhea for one month, overall weakness. Discussion: Supine and upright views of the abdomen and chest were obtained, comparison with plain films and CT from 06/08/2015. No focal consolidation, pleural fluid, pneumothorax. Median sternotomy is stable. Stable normal heart size. Postoperative changes are again noted within the epigastric region and pelvis. Amorphous calcification within the left midabdomen , which is located within the mesentery on CT, is stable and likely benign. Normal bowel gas pattern. No evidence of obstruction, pneumatosis, pneumoperitoneum. Degenerative changes within the lumbar spine and bilateral hips are stable. Incidental note of left L5 pseudoarthrosis which can be associated with pain. Impression: 1. Unremarkable bowel gas pattern. Stable chronic findings as discussed above. ASSESSMENT Paul Braga is a 65 year old male admitted from ED 03/27 with SIRS/Sepsis initially attributed to diverticulitis but CT showed no significant inflammatory change in the abdomen and CRP was only mildly elevated at 1.00. He did, however, have leukocytosis and fever and he was positive for coronavirus and entero/rhinovirus on respiratory PCR swab. PLAN * SIRS/Sepsis: Attributed to diverticulitis initially but CT abdomen reassuring. Could be due to URI (coronavirus, entero/rhinovirus) and he may also have gastroenteritis. * Diverticulitis: Resolved on the basis of CT findings. Stopped cipro and metronidazole 03/28. * URI due to Coronavirus and Entero/rhinovirus: Supportive care. * Gastroenteritis: Clinical diagnosis, on the basis of diarrhea and nausea/ vomiting at home. Supportive care. Advance diet as tolerated. * Fever: Acetaminophen * Cough: Benzonatate, dextromethorphan. * Nausea/Vomiting: Resolving. Ondansetron, promethazine. * Abdominal Pain: Hydromorphone. * F/E/N: CLD. Advance as tolerated. Stop IVF 03/28. Peripheral IV. * Prophylaxis: Enoxaparin * Code Status: Full * Dispo: Inpatient. Possible D/C 03/29 if CXR is reassuring. CHRONIC ISSUES * HDL: Atorvastatin * Diabetes Mellitus Type II: Held metformin, pioglitazone, and glimepiride while NPO. Sliding scale. * GERD: Pantoprazole * HTN: Diltiazem, lisinopril. * CAD: Aspirin. YOHANNES MATTHEWS MD Mar 29, 2016 08:03
[2016-03-29 08:17] VITALS: BP 138/80
[2016-03-29] MEDS: NS FLUSH 3 ML DAILY IV SCH (09:00)
[2016-03-29] MEDS: ASPIRIN 325 MG TAB PO SCH (09:50)
[2016-03-29] MEDS: GLIMEPIRIDE 2 MG (AMARYL) TAB PO SCH (09:50)
[2016-03-29] MEDS: metFORMIN 1000 MG (GLUCOPHAGE) TABLET PO SCH ×2 (09:50→17:37)
--- NOTE | 2016-03-29 09:50 | NUR ---
Jose Ped. cough syrup 15 mg given for persistent harsh cough. States is coughing up yellow sputum. No complaints of pain.
[2016-03-29] MEDS: DEXTROMETHORPHAN 15 MG/10 ML UDC PO PRN ×3 (09:51→21:13)
[2016-03-29] MEDS: ENOXAPARIN 40 MG/0.4 ML (LOVENOX) SYR SC SCH (09:51)
[2016-03-29] MEDS: lisINopril 10 MG (PRINIVIL) TABLET PO SCH (09:51)
--- NOTE | 2016-03-29 12:11 | Diagnostic Imaging Report ---
INDICATION: Cough Comparison: March 05, 2015 Technique: 2 radiographs of the chest dated March 29, 2016. FINDINGS: Postsurgical changes of a CABG are again identified. The cardiac silhouette is within normal limits. No significant pulmonary vascular congestion. Focal pulmonary opacity is identified within the medial aspect of the right lung base. Trace right pleural effusion suspected. The left lung appears clear. No significant left pleural effusion. No pneumothorax. Scattered osseous degenerative changes without acute osseous abnormality. IMPRESSION: Focal opacities within the medial right lung base. Findings may relate to pneumonia. Given the focal nature, neoplasm is not excluded. Therefore, followup radiographs of the chest are recommended in 10-14 days after appropriate therapy to ensure resolution. Additional chronic and postsurgical changes as above. Dictated by: Dictated on workstation # [id number]
[2016-03-29] MEDS ORDERED: cefTRIAXone SODIUM 1,000 MG in SODIUM CHLORIDE 50 ML IV SCH (13:00)
--- NOTE | 2016-03-29 13:20 | NUR ---
Rocephin 1 Gm IV infusing. States cough medicine really helped relieve persistent cough. Up ad denisa in room.
[2016-03-29] MEDS ORDERED: AZITHROMYCIN VIAL 500 MG in SODIUM CHLORIDE 250 ML IV ONE (13:25)
[2016-03-29] MEDS ORDERED: NS 100 ML (IVPB) BAG INJ PRN (13:25)
[2016-03-29] MEDS ORDERED: MULT-28 PO (13:53)
[2016-03-29] MEDS ORDERED: GINS250C2 PO (13:53)
[2016-03-29] MEDS ORDERED: ASCO-262 PO (13:53)
[2016-03-29] MEDS ORDERED: VITA1TAB17 PO (13:53)
[2016-03-29] MEDS ORDERED: vinegar PO (13:53)
--- NOTE | 2016-03-29 13:53 | NUR ---
Updated med list with OTC and supplements information from patient & .
[2016-03-29 16:02] VITALS: BP 152/91
--- NOTE | 2016-03-29 17:43 | NUR ---
Tylenol 650 mg po given for pain in chest when coughing. Tessalon 200 mg given for continued coughing.
--- NOTE | 2016-03-29 18:50 | NUR ---
Resting in bed. Coughing less now. Alert and oriented. Skin w/d. States is coughing up yellow sputum. Up ad denisa in room.
[2016-03-29] MEDS ORDERED: PIOGLITAZONE 30 MG PO SCH (21:00)
[2016-03-29] MEDS: ATORVASTATIN 40 MG (LIPITOR) TABLET PO SCH (21:13)
[2016-03-29] MEDS: DILTIAZEM CD 180 MG (CARDIZEM CD) CAP PO SCH (21:13)
[2016-03-30 00:01] VITALS: BP 118/63
[2016-03-30] MEDS: DEXTROMETHORPHAN 15 MG/10 ML UDC PO PRN ×2 (05:00→11:35)
[2016-03-30] MEDS: PANTOPRAZOLE 40 MG (PROTONIX) TAB PO SCH (06:41)
--- NOTE | 2016-03-30 07:09 | NUR ---
Patient rests in bed throughout night with minimal needs. Reports that he is feeling better, and that dextromethorphan is helping with his cough. No needs at this time.
[2016-03-30] MEDS: INSULIN LISPRO 1 UNIT/0.01 ML (HUMALOG) DOSE SC SCH ×2 (07:16→11:30)
--- NOTE | 2016-03-30 07:30 | NUR ---
Patient awake in bed upon shift assessment. Alert and oriented X3. Denies pain, nausea, SOA, or other distress. States "My cough is still bad but is settled right now". Also reports SOA in the night that has resolved. Inspiratory and expiratory wheezes noted in right upper lobe. HR RRR. Updated on plan of care for shift including antibiotic schedule. Call light in reach.
[2016-03-30 08:14] VITALS: BP 160/80
[2016-03-30] MEDS: NS FLUSH 3 ML DAILY IV SCH (08:25)
[2016-03-30] MEDS: GLIMEPIRIDE 2 MG (AMARYL) TAB PO SCH (08:25)
[2016-03-30] MEDS: ASPIRIN 325 MG TAB PO SCH (08:25)
[2016-03-30] MEDS: lisINopril 10 MG (PRINIVIL) TABLET PO SCH (08:25)
[2016-03-30] MEDS: metFORMIN 1000 MG (GLUCOPHAGE) TABLET PO SCH (08:25)
[2016-03-30] MEDS: ENOXAPARIN 40 MG/0.4 ML (LOVENOX) SYR SC SCH (08:25)
--- NOTE | 2016-03-30 08:45 | NUR ---
NUTRITION ASSESSMENT Level 1 Patient: Paul Braga Age/Sex: 65/M Date Screened: 03-30-16 Weight: 152.2#/69.2 kg Height: 65 inches Primary Diagnosis: gastroenteritis, rhino virus, dehydration Diet Order: medium diabetic Relevant labs: glucose 105 Food allergies: N Nutrition Assessment Criteria Age over 80: N Body Mass Index (BMI) under 19: N Admission Screening Indicates Risk? 3 points Moderate/High Risk Diagnosis: 3 points TPN or PPN: N NPO or clear liquid diet: N Serum Glucose <70 or >180: N Hgb A1c >6.7: N/A Total: 6 points Risk Screen: __ Patient at low nutritional risk based on available data; reevaluate in 5-7 days __ Patient at moderate nutritional risk based on available data; reevaluate in 3-5 days _X_ Patient at high nutritional risk; complete Nutrition Assessment within 48 hours of admission.
[2016-03-30] MEDS ORDERED: SODIUM CHLORIDE IV SCH (09:00)
[2016-03-30] MEDS ORDERED: AZITHROMYCIN 250 MG TAB (ZITHROMAX) PO SCH (09:00)
[2016-03-30] MEDS ORDERED: AZITHROMYCIN IV SCH (09:00)
--- NOTE | 2016-03-30 12:24 | NUR ---
MULTIDISCIPLINARY MTG/DR. MERRILL: Pt. is doing much better. His biggest complaint is his cough. Will change Pt. to oral antibiotics to prepare for discharge. No discharge needs identified at this time.
[2016-03-30] MEDS: ACETAMINOPHEN 325 MG TAB (TYLENOL) PO PRN (12:41)
[2016-03-30] MEDS ORDERED: BENZ-13 PO (16:08)
[2016-03-30] MEDS ORDERED: DEXT7.5S PO (16:08)
[2016-03-30] MEDS ORDERED: CEFD300C PO (16:08)
--- NOTE | 2016-03-30 16:12 | Discharge Summary (E) ---
Discharge Summary (A) Admit Date/Time Mar 27, 2016 at 12:30 Discharge Date/Time Mar 30, 2016 Admitting Provider Chanel Merrill MD Primary Care Provider Phillip Guerrero Attending Provider Chanel Merrill MD Consulting Provider Admission Diagnosis Sepsis Acute diverticulitis URI DM-2 History and Present Illness Mr. Braga is a 65 year old male who comes to the ED for nausea, vomiting, diarrhea with abdominal pain that started at 4am on 03.27.16. He is reporting dizziness when he stands. He lives at home with two small children, one of which has recently been admitted here at the hospital for pneumonia. He also endorses a persistent cough that has been present for the last month. He's not been eating or drinking much due to nausea and vomiting. He denies any symptoms prior to this morning. He was recently treated for diverticulitis 2 weeks ago with Flagyl and Cipro. He presented to the ED and was evaluated. He was found to have elevated WBC's. He's tachycardiac. Respiratory viral panel positive for Coronavirus and Enterovirus. CT of abdomen and pelvis do not show any abdominal abnormalities. Admission was requested due to abdominal pain. Upon arrival to the floor, the patient has a very persistent cough which is his most notable complaint. He does appear ill. His is at bedside. Discussed findings and care plan. Hospital Course and Treatment SIRS/Sepsis Attributed to diverticulitis initially but CT abdomen reassuring.Likely due to URI (coronavirus, entero/rhinovirus) and he may also have gastroenteritis. Diverticulitis Resolved on the basis of CT findings. Stopped cipro and metronidazole 03/28. URI Due to Coronavirus and Entero/rhinovirus. Provided supportive care. Gastroenteritis Clinical diagnosis, on the basis of diarrhea and nausea/vomiting at home. Supportive care. Advanced diet as tolerated. Cough Provided benzonatate and dextromethorphan. HDL Provided home atorvastatin. Diabetes Mellitus Type II Held metformin, pioglitazone, and glimepiride while NPO. Sliding scale. Restarting on d/c. GERD Continued home pantoprazole HTN: Continued home diltiazem and lisinopril. CAD Continued home aspirin. FEN Advanced diet as tolerated. Stopped IVF 03/28. Peripheral IV. Prophylaxis Enoxaparin Code Status Full Dispo Inpatient for above issues. Will discharge to home. Instructed patient to follow with PCP in the next week. Discharge Physicial Exam Physical Exam General--Awake and alert. No distress. HEENT--Normocephalic. MMM in oral cavity. Lungs--Clear to auscultation bilaterally. Nonlabored respirations. Cough with deep breathing. Heart--RRR. Abdomen--Normal bowel sounds. Soft. Nondistended. Nontender. Extremities--No edema to lower extremities. Radiology/Laboratory Data Laboratory Results Past 5 Days 03/27/16 08:27: Absolute Band Neutrophils 1.3, Activated Partial Thromboplast Time 28.6, Alanine Aminotransferase (ALT/SGPT) 41, Albumin 4.6, Albumin/Globulin Ratio 1.314, Alkaline Phosphatase 91, Amylase Level 113, Anion Gap 17.5H, Aspartate Amino Transf (AST/SGOT) 29, BUN/Creatinine Ratio 24H, Band Neutrophils % 6, Basophils # (Auto) , Basophils # (Manual) 0.0, Basophils % (Manual) 0, Basophils (%) (Auto) , Blood Morphology Comment Normal, Blood Urea Nitrogen 27H , C-Reactive Protein 1.00H, Calcium Level 10.0, Calcium/Ionized Calcium Ratio 4.1, Calculated Osmolality 280, Carbon Dioxide Level 26, Chloride Level 102, Creatine Kinase MB 0.6, Creatinine 1.11, Differential Total Cells Counted 100, Eosinophils # 0.0, Eosinophils # (Auto) , Eosinophils % (Manual) 0, Eosinophils (%) (Auto) , Estimat Glomerular Filtration Rate 80.4, Estimated GFR (Non- 66.5, Glucose Level 168H, Hematocrit 40.60, Hemoglobin 13.9, Lactic Acid Level 2.3H, Lipase 125, Lymphocytes # 0.5, Lymphocytes # (Auto) , Lymphocytes % (Manual) 2L, Lymphocytes (%) (Auto) , Mean Corpuscular Hemoglobin 29.1, Mean Corpuscular Hemoglobin Concent 34.2, Mean Corpuscular Volume 85, Mean Platelet Volume 10.2H, Monocytes # 0.9, Monocytes # (Auto) , Monocytes % ( Manual) 4, Monocytes (%) (Auto) , Neutrophils # 19.8, Neutrophils # (Auto) , Neutrophils (%) (Auto) , Platelet Count 251, Potassium Level 4.6, Prothromb Time International Ratio 1.1, Prothrombin Time 11.8, Red Blood Count 4.77, Red Cell Distribution Width 14.1, Segmented Neutrophils % 88H, Sodium Level 140, Total Bilirubin 0.8, Total Creatine Kinase 98, Total Protein 8.1, Troponin I < 0.012, White Blood Count 22.47H 03/27/16 08:35: Adenovirus (PCR) Negative, Bordetella parapertussis DNA (PCR) Negative, Chlamydophila pneumoniae (PCR) Negative, Coronavirus Type 229E (PCR) Negative, Coronavirus Type HKU1 (PCR) Negative, Coronavirus Type NL63 (PCR) Negative, Coronavirus Type OC43 (PCR) Positive*A, Enterovirus/Rhinovirus (PCR) Positive*A , Human Metapneumovirus (PCR) Negative, Influenza Type A (H1) (PCR) Negative, Influenza Virus Type B (PCR) Negative, Mycoplasma pneumoniae (PCR) Negative, Parainfluenza Type 1 (PCR) Negative, Parainfluenza Type 2 (PCR) Negative, Parainfluenza Type 3 (PCR) Negative, Parainfluenza Type 4 (PCR) Negative, Respiratory Syncytial Virus (PCR) Negative 03/27/16 12:00: Urine Bacteria None seen, Urine Bilirubin Negative, Urine Clarity Clear, Urine Collection Type Random voided, Urine Color Yellow, Urine Glucose (UA) Negative, Urine Ketones Negative, Urine Leukocyte Esterase Negative, Urine Nitrite Negative, Urine Protein 2+H, Urine RBC 0-2, Urine RBC (Auto) Negative, Urine Specific [place] 1.015, Urine Squamous Epithelial Cells 0-2, Urine Urobilinogen 0.2, Urine WBC None seen, Urine pH 6.0, Volume Urine Centrifuged 12 ml 03/28/16 05:32: Absolute Band Neutrophils 1.0, Alanine Aminotransferase (ALT/SGPT) 39, Albumin 3.4#, Albumin/Globulin Ratio 1.133, Alkaline Phosphatase 62, Anion Gap 13.1, Aspartate Amino Transf (AST/SGOT) 34, BUN/Creatinine Ratio 17, Band Neutrophils % 4, Basophils # (Auto) , Basophils # (Manual) 0.0, Basophils % (Manual) 0, Basophils (%) (Auto) , Blood Morphology Comment Normal, Blood Urea Nitrogen 19H , Calcium Level 8.9, Calcium/Ionized Calcium Ratio 4.2, Calculated Osmolality 272L, Carbon Dioxide Level 27, Chloride Level 104, Creatinine 1.14, Differential Total Cells Counted 100, Eosinophils # 0.0, Eosinophils # (Auto) , Eosinophils % (Manual) 0, Eosinophils (%) (Auto) , Estimat Glomerular Filtration Rate 78.0, Estimated GFR (Non- 64.5, Glucose Level 130#H, Hematocrit 33.90L, Hemoglobin 11.8L, Lymphocytes # 1.0, Lymphocytes # ( Auto) , Lymphocytes % (Manual) 4L, Lymphocytes (%) (Auto) , Mean Corpuscular Hemoglobin 30.1, Mean Corpuscular Hemoglobin Concent 34.8, Mean Corpuscular Volume 87, Mean Platelet Volume 10.0H, Monocytes # 1.6, Monocytes # (Auto) , Monocytes % (Manual) 6, Monocytes (%) (Auto) , Neutrophils # 22.5, Neutrophils # (Auto) , Neutrophils (%) (Auto) , Platelet Count 224, Potassium Level 4.9, Red Blood Count 3.92L, Red Cell Distribution Width 14.3, Segmented Neutrophils % 86H, Sodium Level 138, Total Bilirubin 1.1H, Total Protein 6.4, White Blood Count 26.14H 03/29/16 05:25: Albumin 3.2L, Anion Gap 12.5, Basophils # (Auto) 0.0, Basophils (%) (Auto) 0, Blood Urea Nitrogen 16, C-Reactive Protein 22.60H, Calcium Level 9.1, Carbon Dioxide Level 25, Chloride Level 105, Creatinine 0.98, Eosinophils # (Auto) 0.1 , Eosinophils (%) (Auto) 1, Estimat Glomerular Filtration Rate 92.9, Estimated GFR (Non- 76.8, Glucose Level 105, Hematocrit 34.10L, Hemoglobin 11.8L, Lymphocytes # (Auto) 1.4, Lymphocytes (%) (Auto) 10L, Mean Corpuscular Hemoglobin 29.7, Mean Corpuscular Hemoglobin Concent 34.6, Mean Corpuscular Volume 86, Mean Platelet Volume 10.8H, Monocytes # (Auto) 1.0, Monocytes (%) (Auto) 7, Neutrophils # (Auto) 11.7, Neutrophils (%) (Auto) 82H, Phosphorus Level 2.5, Platelet Count 223, Potassium Level 4.1, Red Blood Count 3.97L, Red Cell Distribution Width 14.0, Sodium Level 139, White Blood Count 14.20H 1.6.17 Abdominal film Impression: 1. Unremarkable bowel gas pattern. Stable chronic findings as discussed above. 03.27.16 CT abd/pelvis IMPRESSION: CT ABDOMEN AND PELVIS. 1. Diverticulosis with mild inflammatory stranding adjacent to the proximal sigmoid colon compatible with acute diverticulitis. No evidence of perforation or abscess. 2. Scattered tree-in-bud nodular opacities within the left lower lobe, right lower lobe, and right middle lobe most likely relating to an infectious bronchiolitis although of uncertain exact acuity. This is new since comparison CT chest of August 23, 2013. 03.29.16 CXR IMPRESSION: Focal opacities within the medial right lung base. Findings may relate to pneumonia. Given the focal nature, neoplasm is not excluded. Therefore, followup radiographs of the chest are recommended in 10-14 days after appropriate therapy to ensure resolution. Additional chronic and postsurgical changes as above. Discharge Provider's Instructions You were admitted for your cold and cough. You have significantly improved. You are being discharged with cough medications and antibiotics. You will follow with your PCP in the next 1 week. Your other home medications have not changed. Discharge Diet: Carbohydrate controlled Discharge Medications New Medications: Benzonatate (Tessalon Perle) 100 Mg Capsule 200 MG PO TID #20 Ref 0 CAP Cefdinir (Cefdinir) 300 Mg Capsule 300 MG PO Q12HR #7 Ref 0 CAP Dextromethorphan (Robitussin Pediatric 7.5mg/5ml) 7.5 Mg/5 Ml Syrup 15 MG PO Q4H PRN COUGH #30 Ref 0 ML Continued Medications: Ascorbate Calcium (Vitamin C) 500 Mg Tablet 1000 MG PO BID TAB Aspirin (Aspirin) 325 Mg Tablet 325 MG PO DAILY TAB Atorvastatin (Lipitor) 40 Mg Tablet 40 MG PO HS Ref 0 TAB Diltiazem HCl (Cartia XT) 180 Mg Cap.er.24h 180 MG PO HS CAP Ginseng (Ginseng) 250 Mg Capsule 2 CAP PO BID CAP Glimepiride (Glimepiride) 1 Mg Tablet 1 MG PO DAILY TAB Lisinopril (Lisinopril) 10 Mg Tablet 10 MG PO DAILY Metformin HCl (Metformin HCl) 1,000 Mg Tablet 1000 MG PO BID WITH MEALS #60 Multivits,Ca,Minerals/Iron/Fa (Thera-M Tablet) 1 Each Tablet 1 TAB PO DAILY TAB Nitroglycerin (Nitroquick) 0.4 Mg Tab.subl 0.4 MG SL UD PRN CHEST PAIN TAB Ondansetron (Zofran ODT) 4 Mg Tab.rapdis 4 MG PO Q8H PRN NAUSEA/VOMITING Ref 0 TAB Pantoprazole Sodium (Pantoprazole Sodium) 40 Mg Tablet.dr 40 MG PO DAILY Pioglitazone HCl (Actos) 30 Mg Tablet 30 MG PO HS TAB Vitamin B Complex (Vitamin B Complex) 1 Each Tablet 1 TAB PO DAILY TAB ([vinegar]) 30 ML PO BID Follow up Follow up Referrals: Family Practice - Within 2 weeks @ PCP with Dr. Guerrero Discharge Diagnosis SIRS/Sepsis Diverticulitis URI Gastroenteritis Cough Copies to: End of Report . CHANEL MERRILL MD Mar 30, 2016 16:12
[2016-03-30 16:20] VITALS: BP 155/80
--- NOTE | 2016-03-30 16:32 | NUR ---
Discharge order received. IV discontinued with catheter intact. No redness or swelling noted at insertion site. Instructions provided to patient with verbal and written understanding expressed. Dismissed ambulatory to private car accompanied by [employer]. No further needs.
[2016-03-30] MEDS ORDERED: CEFDINIR 300 MG (OMNICEF) CAPSULE PO SCH (21:00)
== END 2016-03-30 16:32 | disposition home or self-care (01) | DRG 872 ==
LOC: ED 07:39 → MED/SURG 12:30
PROVIDERS: ADMIT Family Medicine; ATTEND Family Medicine
DX: A41.9 Sepsis, unspecified organism (principal); J06.9 Acute upper respiratory infection, unspecified; K52.9 Noninfective gastroenteritis and colitis, unspecified; I10 Essential (primary) hypertension; E11.9 Type 2 diabetes mellitus without complications; I25.10 Atherosclerotic heart disease of native coronary artery without angina pectoris; C61 Malignant neoplasm of prostate; K21.9 Gastro-esophageal reflux disease without esophagitis; B97.29 Other coronavirus as the cause of diseases classified elsewhere; Z95.1 Presence of aortocoronary bypass graft; Z87.19 Personal history of other diseases of the digestive system
CPT/HCPCS: 36415; 71020; 74022; 74176; 80053; 80069; 81003; 81015; 82150; 82550; 82553; 83605; 83690; 84484; 85025; 85610; 85730; 86140; 87040; 87205; 87486; 87581; 87633; 87798; 93005; 93010; 96361; 96374; 99284; 99285